=== PATIENT | female | born 2000 | race Caucasian/White ===

== ENCOUNTER 2021-12-15 15:48 | Emergency (ER) | payer MEDICAID ==
[2021-12-15 17:38] LABS: BLOOD UREA NITROGEN,BUN 4 mg/dL (7.0-18.0); CARBON DIOXIDE,CO2 19.9 mmol/L (21.0-32.0); CHLORIDE,CL 103 mmol/L (98-107); GLUCOSE RANDOM 78 mg/dL (74-106); POTASSIUM,K 3.8 mmol/L (3.5-5.1); SODIUM,NA 137 mmol/L (136-145)
== END 2021-12-15 20:01 | disposition home or self-care (01) ==
LOC: MW.ED 15:48
DX: O99.891 Other specified diseases and conditions complicating pregnancy (principal); R06.09 Other forms of dyspnea; R10.2 Pelvic and perineal pain; Z3A.35 35 weeks gestation of pregnancy
CPT/HCPCS: 36415; 71275; 71275-26; 80048; 83735; 84484; 85025; 93005; 99284; 99285-25

== ENCOUNTER 2022-01-06 22:17 | Inpatient (IN) | payer MEDICAID ==
[2022-01-06] MEDS ORDERED: Water For Irrigation,Sterile 1,000 ML Container IRR PRN (22:36)
[2022-01-06] MEDS ORDERED: Sodium Chloride 0.9% 2.5 ML Syringe FLUSH PRN (22:36)
[2022-01-06] MEDS ORDERED: Misoprostol 200 MCG Tab PO PRN (22:36)
[2022-01-06] MEDS ORDERED: Tranexamic Acid 1,000 MG in Sodium Chloride 0.9% 100 ML IV PRN (22:36)
[2022-01-06] MEDS ORDERED: Methylergonovine 0.2 MG/1 ML Amp IM PRN (22:36)
[2022-01-06] MEDS ORDERED: Sodium Chloride 0.9% 20 ML SDV IV PRN (22:36)
[2022-01-06] MEDS ORDERED: Ondansetron 4 MG/2 ML SDV IVPUSH PRN (22:36)
[2022-01-06] MEDS ORDERED: Butorphanol 1 MG/ML SDV IVPUSH PRN (22:36)
[2022-01-06] MEDS ORDERED: Sodium Chloride 0.9% 10 ML Syringe FLUSH PRN (22:36)
[2022-01-06] MEDS ORDERED: Carboprost Tromethamine 250 MCG/1 ML Amp IM PRN (22:36)
[2022-01-06] MEDS ORDERED: Lidocaine 1% 50 ML MDV INJECT PRN (22:36)
[2022-01-06] MEDS ORDERED: Oxytocin/0.9 % Sodium Chloride 30 UNIT/500 ML BAG IV SCH (22:45)
[2022-01-06] MEDS ORDERED: Ampicillin 2 GM in Sodium Chloride 0.9% 100 ML IV ONE (23:00)
[2022-01-06] MEDS: Lactated Ringers 1,000 ML IV SCH (23:02)
[2022-01-07] MEDS: Ampicillin 1 GM in Sodium Chloride 0.9% 50 ML IV SCH ×6 (03:05→22:59)
[2022-01-07] MEDS ORDERED: Ropivacaine 100 ML ONE (04:20)
[2022-01-07] MEDS: Lactated Ringers 1,000 ML IV SCH ×3 (04:23→17:38)
[2022-01-07] MEDS ORDERED: ePHEDrine 50 MG/ML SDV IVPUSH PRN ×2 (04:29)
[2022-01-07] MEDS ORDERED: Oxytocin/0.9 % Sodium Chloride 30 UNIT/500 ML BAG IV SCH (05:15)
[2022-01-07] MEDS: Ropivacaine 200 MG in Premix Bag 1 BAG EPIDUR SCH ×3 (11:30→23:05)
[2022-01-07] MEDS ORDERED: Acetaminophen 500 MG Tab PO ONE (17:00)
[2022-01-07] MEDS ORDERED: fentaNYL 100 MCG/2 ML SDV ONE (20:13)
[2022-01-08] MEDS ORDERED: Ampicillin/Sulbactam Na 3 GM in Sodium Chloride 0.9% 100 ML IV ONE (02:25)
[2022-01-08] MEDS ORDERED: oxyCODONE 5 MG Tab PO PRN (03:31)
[2022-01-08] MEDS ORDERED: Benzocaine/Menthol 20%-0.5% Spray 78 GM Cannister TOP PRN (03:31)
[2022-01-08] MEDS ORDERED: Witch Hazel Medicated Pads 40/Jar TOP PRN (03:31)
[2022-01-08] MEDS ORDERED: Lanolin 100% Cream 7 GM Tube TOP PRN (03:31)
[2022-01-08] MEDS ORDERED: Aluminum Hydroxide/Magnesium Hydroxide/Simethicone XS Susp 30 ML Cup PO PRN (03:31)
[2022-01-08] MEDS ORDERED: Ibuprofen 400 MG Tab PO PRN (03:31)
[2022-01-08] MEDS ORDERED: Bisacodyl 10 MG Supp RECTAL PRN (03:31)
[2022-01-08] MEDS ORDERED: Acetaminophen 500 MG Tab PO PRN (03:31)
[2022-01-08] MEDS: Ibuprofen 800 MG Tab PO PRN (05:57)
[2022-01-08] MEDS: Ampicillin/Sulbactam Na 1.5 GM in Sodium Chloride 0.9% 50 ML IV SCH ×2 (13:14→23:45)
[2022-01-08] MEDS ORDERED: Ampicillin/Sulbactam Na 1.5 GM in Sodium Chloride 0.9% 50 ML IV SCH (22:00)
[2022-01-08] MEDS: Docusate Sodium 100 MG Cap PO PRN (22:15)
[2022-01-08] MEDS: Acetaminophen 500 MG Tab PO PRN (22:16)
[2022-01-09] MEDS ORDERED: Ampicillin/Sulbactam Na 1.5 GM in Sodium Chloride 0.9% 50 ML IV ONE (08:00)
[2022-01-09] MEDS: Ibuprofen 800 MG Tab PO PRN ×2 (08:24→17:22)
[2022-01-10] MEDS: Acetaminophen 500 MG Tab PO PRN (08:37)
[2022-01-10] MEDS: Docusate Sodium 100 MG Cap PO PRN (08:38)
== END 2022-01-10 11:45 | disposition home or self-care (01) | DRG 805 ==
LOC: MW.OB 22:17 → MW.OBCHECK 22:17 → MW.OB 22:36 → MW.OBCHECK 22:36 → OBSVTOIN 01-08 02:56 → MW.OB 01-08 10:36
PROVIDERS: ADMIT Obstetrics & Gynecology; ATTEND Obstetrics & Gynecology
PROC: 10D07Z6 Extraction of Products of Conception, Vacuum, Via Natural or Artificial Opening (ICD-10-PCS; principal; 2022-01-08)
PROC: 0KQM0ZZ Repair Perineum Muscle, Open Approach (ICD-10-PCS; 2022-01-08)
PROC: 3E0R3BZ Introduction of Anesthetic Agent into Spinal Canal, Percutaneous Approach (ICD-10-PCS; 2022-01-08)
PROC: 00HU33Z Insertion of Infusion Device into Spinal Canal, Percutaneous Approach (ICD-10-PCS; 2022-01-08)
DX: O99.824 Streptococcus B carrier state complicating childbirth (principal); O41.1230 Chorioamnionitis, third trimester, not applicable or unspecified; Z37.0 Single live birth; U07.1 COVID-19; O98.52 Other viral diseases complicating childbirth; O99.12 Other diseases of the blood and blood-forming organs and certain disorders involving the immune mechanism complicating childbirth; D69.6 Thrombocytopenia, unspecified; O99.02 Anemia complicating childbirth; D64.9 Anemia, unspecified; Z86.16 Personal history of COVID-19; O75.81 Maternal exhaustion complicating labor and delivery; O70.1 Second degree perineal laceration during delivery; O42.12 Full-term premature rupture of membranes, onset of labor more than 24 hours following rupture; Z3A.38 38 weeks gestation of pregnancy
CPT/HCPCS: 01967; 36415; 51702; 59025; 59409; 82803; 85025; 85027; 86592; 86850; 86900; 86901; A9270-GY; J0290; J0295; J2001; J2405; J2590; J2795; J3010; J7120; U0002